=== PATIENT | female | born 1990 | race African-American/Black ===

== ENCOUNTER 2020-10-02 00:51 | Emergency (ER) | payer OTHER ==
[~2020-10-02] VITALS: Ht 165.1 cm; Wt 59.0 kg
[2020-10-02 01:07] VITALS: BP 144/88
== END 2020-10-02 02:29 | disposition home or self-care (01) ==
LOC: ER 00:54
DX: M79.18 Myalgia, other site (principal); V49.59XA Passenger injured in collision with other motor vehicles in traffic accident, initial encounter; Y93.89 Activity, other specified; Y92.488 Other paved roadways as the place of occurrence of the external cause; Y99.8 Other external cause status